=== PATIENT | female | born 1960 | race Caucasian/White ===

== ENCOUNTER 2020-05-24 09:28 | Emergency (ER) | payer BC, SELFPAY ==
[2020-05-24 09:43] VITALS: BP 140/84; PULSE 96; RESP 16; TEMP 36.9; O2SAT 98
--- NOTE | 2020-05-24 10:17 | ED.FEMALEGU ---
HPI - Female Genitourinary General Chief complaint: Urogenital-Female Stated complaint: uti Time Seen by Provider: 05/24/20 10:17 Source: patient Mode of arrival: ambulatory Limitations: no limitations History of Present Illness HPI Narrative: Aviva Neumann is a 59 yo female with a PMH of high cholesterol who comes to express care with burning and frequency that started yesterday morning she attempted to treat with increased fluid intake and use of Azo, continues to have increasing bladder spasm and discomfort this morning-noted blood in urine this morning Has had occasional UTIs in the past Related Data Home Medications Medication Instructions Recorded Confirmed bupropion HCl mg PO 05/24/20 lorazepam 05/24/20 rosuvastatin mg 05/24/20 sertraline mg 05/24/20 Allergies Allergy/AdvReac Type Severity Reaction Status Date / Time codeine Allergy Mild Swelling Unverified 05/13/19 08:07 Review of Systems Review of Systems: Narrative: CONSTITUTIONAL: Denies fever, chills, sweats. EYES: Denies visual changes, redness, discharge. ENT: Denies rhinorrhea, congestion, sore throat, otalgia. CARDIOVASCULAR: Denies chest pain, palpitations, edema. RESPIRATORY: Denies dyspnea, wheezing, cough GASTROINTESTINAL: Denies abdominal pain, nausea, vomiting, diarrhea. GENITOURINARY has dysuria, has hematuria, abnormal discharge SKIN: Denies rash or itching. NEUROLOGIC: Denies numbness, or focal weakness. PSYCHIATRIC: Denies anxiety or depression. [facility] Family History Family History Other Diabetes mellitus Heart disease Hypertension Social History Social History (Updated 05/24/20 @ 10:23 by Katy Mcdaniel CNP) Smoking status: Never smoker Alcohol intake: current Comments At time of signature, I agree with nursing past medical, surgical, social and family history. There is no relevant family history pertinent to the presenting complaint. Exam Narrative: Exam Narrative: GENERAL: This is a well-nourished, well-developed patient, in mild distress. HEAD: normocephalic, atraumatic. EYES: PERRL. Sclera clear/white. Vision is grossly intact. EARS: External ears normal, . Hearing grossly intact. NOSE: External nose normal without nasal discharge, nares without redness, no rhinorrhea. THROAT: Mucous membranes moist, NECK: Neck supple, CARDIOVASCULAR: Regular rate and rhythm without murmurs, gallops, or rubs. RESPIRATORY: Clear to auscultation. Breath sounds equal bilaterally. No wheezes, rales, or rhonchi. GASTROINTESTINAL: Abdomen soft, mild suprapubic tenderness SKIN: warm, intact with no suspicious lesions or rash, good texture and turgor. NEURO: awake, alert, and oriented to person, place and time. There were no obvious focal neurologic abnormalities. Steady gait EXTREMITIES: Normal range of motion. BACK: Nontender without deformity Course Course Emergency Course: UA shows 3+ leukocytes and positive nitrites, 3+ blood-discussed use of antibiotics as has had prior UTI; has taken Bactrim before but causes her to have a headache so started on Keflex 500 mg 1 twice daily x5 days along with Pyridium Follow-up with PCP Vital Signs Vital signs: Vital Signs Temperature 98.4 F 05/24/20 09:43 Pulse Rate 96 05/24/20 09:43 Respiratory Rate 16 05/24/20 09:43 Blood Pressure 140/84 05/24/20 09:43 Pulse Oximetry 98 05/24/20 09:43 Temperature 98.4 F 05/24/20 09:43 Pulse Rate 96 05/24/20 09:43 Respiratory Rate 16 05/24/20 09:43 Blood Pressure 140/84 05/24/20 09:43 Pulse Oximetry 98 05/24/20 09:43 MDM - Female Genitourinary Differential Diagnosis Differential diagnosis: Likely urinary tract infection, cystitis and other Lab Data Labs: Urine Glucose Trace Reference Range: Negative Urine Bilirubin 1+ Reference Range: Negative Urine Ketone Trace Referenc
== END 2020-05-24 10:35 | disposition home or self-care (01) ==
PROVIDERS: Emergency Provider Nurse Practitioner; PCP Internal Medicine
DX: N30.01 Acute cystitis with hematuria (principal); E78.00 Pure hypercholesterolemia, unspecified
CPT/HCPCS: 81003; 87077; 87086; 87088; 87186; 99213; G0463

== ENCOUNTER 2022-02-15 08:58 | Outpatient (CLI) | payer BC, SELFPAY ==
--- NOTE | ~2022-02-15 | MM_ITS ---
EXAMINATION: MM screening [facility] BI w kalie HISTORY: Screening mammogram TECHNIQUE: Craniocaudal and mediolateral oblique 3-D tomosynthesis images were obtained and synthetic 2-D images were generated. CAD analysis was submitted and interpreted. COMPARISON: 08/23/2014 diagnostic left mammogram 08/12/2014, 08/05/2013 bilateral screening mammogram examinations... BREAST PARENCHYMAL COMPOSITION: There are scattered areas of fibroglandular density. FINDINGS: Upper-outer quadrant left breast biopsy marker; history of prior bilateral benign breast bi opsies. Bilateral nodular subcentimeter masses are noted. Bilateral diagnostic mammography and breast ultraso und examination are recommended IMPRESSION: 1. Bilateral subcentimeter masses; 2. Bilateral diagnostic mammography and breast ultrasound examination are recommended BI-RADS Category 0: Incomplete: Needs additional imaging evaluation. Reviewed, dictated and finalized at location A. IMPRESSION: 1. Bilateral subcentimeter masses; 2. Bilateral diagnostic mammography and breast ultrasound examination are recom mended BI-RADS Category 0: Incomplete: Needs additional imaging evaluation.
== END 2022-02-15 08:59 | disposition home or self-care (01) ==
DX: Z12.31 Encounter for screening mammogram for malignant neoplasm of breast (principal); R92.8 Other abnormal and inconclusive findings on diagnostic imaging of breast
CPT/HCPCS: 77063; 77067

== ENCOUNTER 2022-07-15 01:44 | Day surgery (SDC) | payer BC, SELFPAY ==
[2022-06-28 13:47] VITALS: BMI 33.7
--- NOTE | 2022-07-14 16:29 | PM.HPGS ---
History of Present Illness History of Present Illness Consent: Risks, benefits, and alternatives have been discussed and questions answered. Patient agrees to proceed with procedure. Chief complaint: GERD, neoplasm screening Narrative: Aviva Neumann is a 61 year old female with chronic reflux symptoms was also due for colon cancer screening. She denies dysphagia. She is not currently on acid reducing medications. she often regurgitates bitter material, particularly when lying down. Review of Systems Review of Systems: All systems reviewed & are unremarkable except as noted in HPI and below PMFSH Family History Family History Other Diabetes mellitus Heart disease Hypertension Social History Social History Smoking status: Never smoker Alcohol intake: never Substance use: never Substance use type: does not use Living arrangements: with family Spiritual care concerns: No Meds Home Medications and Allergies Home Medications Medication Instructions Recorded Confirmed Type rosuvastatin 20 mg tablet 20 mg PO DAILY 05/24/20 06/28/22 History sertraline 100 mg tablet 100 mg PO DAILY 05/24/20 06/28/22 History lisinopril 10 mg tablet 10 mg PO DAILY 06/28/22 06/28/22 History Allergies Allergy/AdvReac Type Severity Reaction Status Date / Time codeine Allergy Mild Swelling Verified 07/15/22 08:34 Exam Const: General: alert Orientation/consciousness: patient oriented x3 Resp: Auscultation: clear to auscultation bilaterally Cardio: Rhythm: regular rhythm GI: GI Palp: Yes Soft to palpation and No Tenderness to palpation present (GI) Neuro: General: patient oriented x3 Assessment and Plan Assessment and plan (1) GERD (gastroesophageal reflux disease): Code(s): K21.9 - Gastro-esophageal reflux disease without esophagitis Status: Acute Assessment and Plan: EGD with possible biopsy or dilatation or cautery. (2) Colon cancer screening: Code(s): Z12.11 - Encounter for screening for malignant neoplasm of colon Status: Acute Assessment and Plan: Colonoscopy with possible biopsy or polypectomy or cautery or injection of substances.
[2022-07-15 08:35] VITALS: BP 141/85; PULSE 87; RESP 16; TEMP 36.9; O2SAT 97; BMI 34.1
[2022-07-15] MEDS: LACTATED RINGERS 1,000 ML 150 ML IV CONT (08:44)
--- NOTE | 2022-07-15 09:24 | WPDANESEPPF ---
Anes - Initial Pre Proc Eval Procedure: Operation Date: 07/15/22 10:00 Proposed Procedures p Esophagogastroduodenoscopy & Screening Colonoscopy - Gavin Marcelino MD Date/Time: 07/15/22 09:24 Surgeon: Gavin Marcelino MD Pre Op Diagnosis: GERD, neoplasm screening Patient Data Age: 61 Gender: F Height: 1.7 m Weight: 98.9 kg Last Vital Signs Temp 98.4 F 07/15/22 08:35 Pulse 87 07/15/22 08:35 Resp 16 07/15/22 08:35 BP 141/85 H 07/15/22 08:35 Pulse Ox 97 07/15/22 08:35 O2 Del Method Room Air 07/15/22 08:35 Allergies Allergy/AdvReac Type Severity Reaction Status Date / Time codeine Allergy Mild Swelling Verified 07/15/22 08:34 Home Medications Medication Instructions Recorded Confirmed Type rosuvastatin 20 mg tablet 20 mg PO DAILY 05/24/20 06/28/22 History sertraline 100 mg tablet 100 mg PO DAILY 05/24/20 06/28/22 History lisinopril 10 mg tablet 10 mg PO DAILY 06/28/22 06/28/22 History Patient hx anesthesia problems: none Family hx anesthesia problems: none Results Review: All pre-operative results and documents have been reviewed as part of the pre-operative evaluation. [facility] Family History Family History Other Diabetes mellitus Heart disease Hypertension Social History Social History (Updated 05/24/20 @ 10:23 by Katy Mcdaniel CNP) Smoking status: Never smoker Alcohol intake: never Substance use: never Substance use type: does not use Living arrangements: with family Spiritual care concerns: No Anes - Eval Final PreProcedure Day of Procedure 07/15/22 09:24 Patient weight: obese Heart: regular rate and rhythm Lungs: clear to auscultation Airway: Mallampati scale class II Neurological: alert and oriented Last oral intake: >/= 8 hours ASA classification: II Emergent: no Anesthetic plan: proceed Anesthesia type and monitoring: general GIVS and standard monitoring Results Review: All pre-operative results and documents have been reviewed as part of the pre-operative evaluation. Informed Consent: The patient's anesthetic plan and its attendant risks and benefits were discussed with the patient/family/POA. Questions were solicited and answers provided to the satisfaction of the patient/family/POA.
[2022-07-15] MEDS: BENZOCAINE (*SP) 60 ML SPRAY CAN (HURRICAINE) 1 SPRAY MUCOUS MEM (10:34)
--- NOTE | 2022-07-15 10:39 | SUR.OPER ---
EGD START 1017, END 1021 COLONOSCOPY START 1029, END 1038
[2022-07-15 10:42] VITALS: BP 124/80; PULSE 70; RESP 20; O2SAT 96
[2022-07-15 10:52] VITALS: BP 151/87; PULSE 70; RESP 20; O2SAT 97
[2022-07-15 11:02] VITALS: BP 113/54; PULSE 64; RESP 19; O2SAT 100
== END 2022-07-15 11:28 | disposition home or self-care (01) ==
PROVIDERS: PCP Internal Medicine; Visit Provider Internal Medicine Gastroenterology
PROC: 0DJ08ZZ Inspection of Upper Intestinal Tract, Via Natural or Artificial Opening Endoscopic (ICD-10-PCS; CPT 43235; principal; 2022-07-15 10:00)
DX: Z12.11 Encounter for screening for malignant neoplasm of colon (principal); K57.30 Diverticulosis of large intestine without perforation or abscess without bleeding; K29.50 Unspecified chronic gastritis without bleeding; K22.2 Esophageal obstruction; K21.00 Gastro-esophageal reflux disease with esophagitis, without bleeding; K44.9 Diaphragmatic hernia without obstruction or gangrene; E66.9 Obesity, unspecified; Z68.34 Body mass index [BMI] 34.0-34.9, adult; I10 Essential (primary) hypertension; E11.9 Type 2 diabetes mellitus without complications; I51.9 Heart disease, unspecified; R13.10 Dysphagia, unspecified
CPT/HCPCS: 45378; 43239; 87081; 88305; J2704; J7120

== ENCOUNTER 2023-03-01 15:03 | Outpatient (CLI) | payer BC, SELFPAY ==
--- NOTE | ~2023-03-01 | MM_ITS ---
EXAMINATION: MM screening [facility] BI w kalie HISTORY: Screening mammogram, family history of breast cancer in her mother. TECHNIQUE: Craniocaudal and mediolateral oblique 3-D tomosynthesis images were obtained and synthetic 2-D images were generated. CAD analysis was submitted and interpreted. COMPARISON: 02/15/2022, 12/30/2020, 11/21/2019, 08/23/2014, 08/12/2014 BREAST PARENCHYMAL COMPOSITION: There are scattered areas of fibroglandular density. FINDINGS: RIGHT BREAST: No suspicious mass, calcification, or architectural distortion are identified to sugges t malignancy. There has been no suspicious interval change. LEFT BREAST: There is an obscured mass in the posterior third of the outer breast approximately 8 cm from the nipple. IMPRESSION: 1. Left breast mass. 2. Additional mammographic views and possible breast ultrasound are recommended. BI-RADS Category 0: Incomplete: Needs additional imaging evaluation. Reviewed, dictated and finalized at location A. IMPRESSION: 1. Left breast mass. 2. Additional mammographic views and possible breast ultrasound are recommended . BI-RADS Category 0: Incomplete: Needs additional imaging evaluation.
== END 2023-03-01 15:04 | disposition home or self-care (01) ==
PROVIDERS: PCP Internal Medicine; Visit Provider Obstetrics & Gynecology
DX: Z12.31 Encounter for screening mammogram for malignant neoplasm of breast (principal); R92.8 Other abnormal and inconclusive findings on diagnostic imaging of breast
CPT/HCPCS: 77063; 77067

== ENCOUNTER 2023-03-28 11:29 | Outpatient (CLI) | payer BC, SELFPAY ==
--- NOTE | ~2023-03-28 | MMUS_ITS ---
EXAMINATION: MM diagnostic [facility] LT w kalie, US breast LT complete HISTORY: Obscured left breast mass reported in posterior third of outer breast approximately 8 cm fro m nipple on 03/01/2023 screening mammogram TECHNIQUE: Additional 3-D tomosynthesis images of the left breast were performed and synthetic 2-D im ages were generated. CAD analysis was submitted and interpreted. High resolution complete left breast ultrasound examination including all 4 quadrants and subareolar area was performed. COMPARISON: 03/01/2023 bilateral screening mammogram FINDINGS: MAMMOGRAPHIC FINDINGS: There is a biopsy marker in the upper outer quadrant of the left breast. History of prior benign left breast biopsy. A circumscribed approximately 6.7 x 8 mm opacity is noted in the posterior outer mid left breast. The re is partial halo sign suggesting benign etiology, likely cyst. There is mildly nodular fibroglandular stroma of the left breast which may obscure small masses; for this reason, complete left breast ultrasound examination was performed. ULTRASOUND: 3:00 5 cm from nipple: 5.1 x 8 mm sonolucency without internal vascularity, with through transmission , consistent with simple cyst. No suspicious mass or shadowing is detected elsewhere in the left breast. IMPRESSION: 1. Benign approximately 5 x 8 mm 3:00 left breast cyst 2. Routine annual mammographic screening is recommended BI-RADS Category 2: Benign finding(s). Reviewed, dictated and finalized at location A. IMPRESSION: 1. Benign approximately 5 x 8 mm 3:00 left breast cyst 2. Routine annual mammographic screening is recommended BI-RADS Category 2: Benign finding(s).
== END 2023-03-28 11:30 | disposition home or self-care (01) ==
PROVIDERS: PCP Obstetrics & Gynecology; Visit Provider Obstetrics & Gynecology
DX: N63.20 Unspecified lump in the left breast, unspecified quadrant (principal); R92.8 Other abnormal and inconclusive findings on diagnostic imaging of breast
CPT/HCPCS: 76641; 77061; 77065; G0279

== ENCOUNTER 2023-06-26 18:47 | Emergency (ER) | payer BC, SELFPAY ==
--- NOTE | ~2023-06-26 | XR_ITS ---
EXAMINATION: XR chest 2V Exam Date/Time: 06/26/2023 18:50 CDT HISTORY: cp MIDSTERNAL CHEST PAIN THAT RADIATES BETWEEN B/L Comparison: None. RESULT: Lines, tubes, and devices: None. Lungs and pleura: Calcified right lower lobe granuloma, otherwise clear. Cardiomediastinal silhouette: Stable. Linear and curvilinear gastric is project over the heart, seen best in the lateral view, possibly related to coronary artery and/or bowel calcification. Other: No acute osseous or upper abdominal finding. IMPRESSION: No acute cardiopulmonary process. Reviewed, dictated and finalized at location K.
--- NOTE | 2023-06-26 18:48 | ECG_ITS ---
Measurements Intervals [place] Rate: 80 P: 42 MA: 159 QRS: 9 QRSD: 93 T: -37 QT: 371 QTc: 430 Interpretive Statements SINUS RHYTHM BORDERLINE R WAVE PROGRESSION, ANTERIOR LEADS BORDERLINE ST-T WAVE ABNORMALITY- ANTEROLAT/INF LEADS BASELINE ARTIFACT- I, III, AVR, AVL, V1-V3, V6 BORDERLINE ECG NO PREVIOUS ECG AVAILABLE FOR COMPARISON Electronically Signed On 06-26-2023 19:47:02 CDT by Liam Moulton D.O.
[2023-06-26 18:51] VITALS: BP 146/92; PULSE 82; RESP 16; TEMP 37; O2SAT 97
[2023-06-26 19:21] LABS: Basophils Percent Auto 0.4 % (0.2-1.2); Eosinophils Absolute Auto 0.3 K/mm3 (0-0.3); Eosinophils Percent Auto 3.7 % (0-4.4); Immature Granulocyte Absolute 0.03 K/mm3 (0.00-0.031); Immature Granulocyte Percent A 0.4 % (0-0.5); Lymphocytes Absolute Auto 2.82 K/mm3 (0.9-3.2); Lymphocytes Percent Auto 34.5 % (18.3-44.2); Mean Corpuscular HGB Conc 34.1 g/dl (32-36); Mean Corpuscular Hemoglobin 30.6 pg (26-34); Mean Corpuscular Volume 89.7 fl (80-100); Mean Platelet Volume 9.4 fl (7.4-10.4); Monocytes Absolute Auto 0.7 K/mm3 (0.1-0.6); Monocytes Percent Auto 8.4 % (2.6-8.5); Neutrophils Absolute Auto 4.3 K/mm3 (1.3-6.7); Neutrophils Percent Auto 52.6 % (45.5-73.1); Platelet Count Result 300 k/mm3 (150-375); Red Blood Count 4.57 M/mm3 (4.2-5.4); Red Cell Distribution Width 12.7 % (11.5-14.5); White Blood Count 8.2 K/mm3 (4.5-10.0)
[2023-06-26 19:31] LABS: INR 0.9; Prothrombin Time 12.8 Seconds (11.1-14.7)
[2023-06-26 19:32] LABS: Partial Thromboplastin Time 28.4 SECONDS (22.3-36.8)
[2023-06-26 19:34] LABS: Alanine Aminotransferase 25 U/L (6-35); Albumin Level 4.4 g/dL (3.5-5.1); Alkaline Phosphatase 75 U/L (38-126); Anion Gap 10 mmol/L (8-16); Aspartate Amino Transferase 27 U/L (14-36); Bilirubin,Total 0.5 mg/dL (0.2-1.3); Blood Urea Nitrogen 18 mg/dL (7-17); Calcium 9.6 mg/dL (8.4-10.2); Carbon Dioxide 29 mmol/L (22-30); Chloride 101 mmol/L (98-107); Estimated Glomerular Filt Rate 56; Glucose 127 mg/dL (65-110); Lipase 118 U/L (23-300); Potassium 3.9 mmol/L (3.4-5.0); Sodium 140 mmol/L (137-145)
[2023-06-26 19:46] LABS: Troponin I < 0.012 ng/mL (0.000-0.034)
[2023-06-27] MEDS: ASPIRIN 81 MG CHEWABLE TABLET 324 MG PO
[2023-06-27 00:02] VITALS: BP 150/91; PULSE 80; RESP 16; O2SAT 97
[2023-06-27 00:30] LABS: Troponin I < 0.012 ng/mL (0.000-0.034)
--- NOTE | 2023-06-27 01:24 | ED.CHESTPAIN ---
HPI - Chest Pain General Chief Complaint: Chest Pain Stated Complaint: chest pain Time Seen by Provider: 06/27/23 00:44 History of Present Illness HPI narrative: Patient presents to the emergency department with left lateral chest pain that radiates into her mid upper back. Pain lasted for couple hours and improved after arrival. She denies all other review of systems including shortness of breath fevers chills cough nausea and vomiting. She asks if this discomfort could be secondary to stress. Her was recently diagnosed with cancer. She denies any cardiac risk factors. Her sister had a heart attack in her 50s. Patient is very pleasant and her exam is grossly benign. Related Data Home Medications Medication Instructions Recorded Confirmed rosuvastatin 20 mg tablet 20 mg PO DAILY 05/24/20 11/08/22 sertraline 100 mg tablet 100 mg PO DAILY 05/24/20 11/08/22 lisinopril 10 mg tablet 10 mg PO DAILY 06/28/22 11/08/22 Allergies Allergy/AdvReac Type Severity Reaction Status Date / Time codeine Allergy Mild Swelling Verified 06/26/23 18:53 Review of Systems Review of Systems: CONSTITUTIONAL: Denies fever, chills, or sweats. EYES: Denies visual changes, redness, or discharge. ENT: Denies rhinorrhea, congestion, sore throat, or otalgia. CARDIOVASCULAR: Denies palpitations, or edema. Chest pain and back pain RESPIRATORY: Denies cough or dyspnea. GASTROINTESTINAL: Denies abdominal pain, nausea, vomiting, or diarrhea. GENITOURINARY: Denies dysuria or hematuria. SKIN: Denies rash or itching. MUSCULOSKELETAL: Denies back pain, joint pain, or myalgia. NEUROLOGIC: Denies headache, numbness, or weakness. PSYCHIATRIC: Denies anxiety or depression. [facility] Past Medical History Medical History (Updated 06/27/23 @ 01:33 by Dee Dee rBothers MD) Anxiety and depression Breast cyst Diverticulitis Hypertension Left breast mass Screening for breast cancer Surgical History Surgical History History of breast biopsy 2013 (L) breast--benign 09/2016 (R) breast--benign 10/2016 (R) breast radial scar removed--benign History of cholecystectomy (09/11/18) History of total abdominal hysterectomy (~2005) uterine fibroids Family History Family History Father Heart disease Diabetes mellitus Carcinoma of colon Malignant neoplasm of skin Grandparent Heart disease paternal grandmother Mother Hypertension Sibling Acute myocardial infarction sister Other Breast cancer maternal uncle Social History Social History (Updated 11/08/22 @ 13:53 by Afsaneh Rodríguez CMA) Smoking status: Never smoker Alcohol intake: never Substance use: never Substance use type: does not use Living arrangements: other Additional living arrangements comments: Occupation/Education: retired Gender identity (if verbalized by the patient): Female Sexual Orientation (if Verbalized by the Patient): Straight or Heterosexual Spiritual care concerns: No Exam Narrative: GENERAL: Well-appearing, well-nourished, and in no acute distress. HEAD: Normocephalic, atraumatic. EYES: PERRLA and EOMI. ENT: Nares clear, no rhinorrhea or epistaxis. Mucous membranes moist. NECK: Supple. CHEST: Clear to auscultation. No respiratory distress. HEART: Regular rate and rhythm. ABDOMEN: Soft, nontender, nondistended. EXTREMITIES: Normal range of motion. No edema. SKIN: Warm, dry, no rash. NEURO: No focal deficits. Alert and oriented x3. PSYCH: Normal mood and affect. Course Course Emergency Course: Differential diagnosis includes but not limited to chest wall pain, musculoskeletal back pain, pneumonia, stress Vital Signs Vital signs: Vital Signs Temperature 37.0 C 06/26/23 18:51 Pulse Rate 82 06/26/23 18:51 Respiratory Rate 16 06/26/23 18:51 Blood Pressure 146/92 H 06/26
--- NOTE | 2023-06-27 01:32 | PC.NURSE ---
Pt seen and treated in triage by MIGUEL Brothers.
[2023-06-27 01:38] VITALS: BP 141/87; PULSE 73; RESP 18; O2SAT 98
== END 2023-06-27 01:42 | disposition home or self-care (01) ==
PROVIDERS: Emergency Medicine; Emergency Provider Emergency Medicine; PCP Family Medicine
DX: R07.89 Other chest pain (principal); M54.6 Pain in thoracic spine; F41.9 Anxiety disorder, unspecified; F32.A Depression, unspecified; I10 Essential (primary) hypertension
CPT/HCPCS: 36415; 71046; 80053; 83690; 84484; 85025; 85610; 85730; 93005; 99284; A9270

== ENCOUNTER 2024-07-20 13:36 | Outpatient (CLI) | payer BC, SELFPAY ==
--- NOTE | ~2024-07-20 | MM_ITS ---
EXAMINATION: MM screening [facility] BI w kalie HISTORY: Screening TECHNIQUE: Craniocaudal and mediolateral oblique 3-D tomosynthesis images were obtained and synthetic 2-D images were generated. CAD analysis was submitted and interpreted. COMPARISON: Comparison to multiple prior studies sequentially, with oldest reviewed study dated 04/2014. BREAST PARENCHYMAL COMPOSITION: Not dense: There are scattered areas of fibroglandular density. FINDINGS: There is no evidence of suspicious mass, calcification, or architectural distortion to sugg est malignancy in either breast. There has been no suspicious interval change. IMPRESSION: 1. No mammographic evidence of malignancy. 2. Recommend routine screening mammography in one year. BI-RADS Category 1: Negative Reviewed, dictated and finalized at location B.
== END 2024-07-20 13:37 | disposition home or self-care (01) ==
LOC: ANHIMG 13:38
PROVIDERS: PCP Nurse Practitioner Family; Visit Provider Nurse Practitioner Family
DX: Z12.31 Encounter for screening mammogram for malignant neoplasm of breast (principal)
CPT/HCPCS: 77063; 77067

== ENCOUNTER 2025-04-19 10:30 | Emergency (ER) | payer BC, SELFPAY ==
--- NOTE | ~2025-04-19 | XR_ITS ---
CHEST RADIOGRAPH, PA AND LATERAL CLINICAL HISTORY: cough couple days nonsmoker hx bronchitis . COMPARISON: 06/26/2023 TECHNIQUE: PA and lateral views of the chest. FINDINGS The cardiomediastinal silhouette is unremarkable. The lungs are clear. IMPRESSION: No focal infiltrate or effusion. Reviewed, dictated and finalized at location A.
[2025-04-19 10:37] VITALS: BP 127/70; PULSE 104; RESP 18; TEMP 36.8; O2SAT 98
--- NOTE | 2025-04-19 10:50 | ED_ITS ---
HPI - General Adult General Chief complaint: Upper Respiratory Infection Stated complaint: Cough Source: patient Mode of arrival: ambulatory Limitations: no limitations History of Present Illness HPI narrative: Patient presents for evaluation of a cough for the last 2 days. Cough is nonproductive. She denies any fever, chills, shortness of breath, nausea, vomiting, diarrhea. No recent sick contacts to her knowledge. She tried taking DayQuil and Tessalon Perles. Tessalon Perles provide him mild relief. She does not smoke. She came in because her is immunosuppressed and she did not want to expose him to any illness. Related Data Allergies Allergy/AdvReac Type Severity Reaction Status Date / Time codeine Allergy Mild Swelling Verified 04/19/25 10:33 Review of Systems Review of Systems: CONSTITUTIONAL: Denies fever, chills, or sweats. EYES: Denies visual changes, redness, or discharge. ENT: Denies rhinorrhea, congestion, sore throat, or otalgia. CARDIOVASCULAR: Denies chest pain, palpitations, or edema. RESPIRATORY: reports cough. Denies shortness of breath. GASTROINTESTINAL: Denies abdominal pain, nausea, vomiting, or diarrhea. GENITOURINARY: Denies dysuria or hematuria. SKIN: Denies rash or itching. MUSCULOSKELETAL: Denies back pain, joint pain, or myalgia. NEUROLOGIC: Denies headache, numbness, dizziness, or weakness. PSYCHIATRIC: Denies anxiety or depression. [facility] Past Medical History Medical History Cough BMI 33.0-33.9,adult BMI 32.0-32.9,adult BMI 35.0-35.9,adult Hypersomnia Snoring Anxiety Edema Vitamin D deficiency BMI 34.0-34.9,adult Encounter to establish care Microscopic hematuria Hyperlipidemia Elevated glucose Left breast mass Screening for breast cancer Hypertension Diverticulitis Breast cyst Anxiety and depression Surgical History Surgical History Hx of cataract surgery right and left eye History of breast biopsy 2013 (L) breast--benign 09/2016 (R) breast--benign 10/2016 (R) breast radial scar removed--benign History of total abdominal hysterectomy (~2005) uterine fibroids History of cholecystectomy (09/11/18) Family History Family History Father Heart disease Diabetes mellitus Carcinoma of colon Malignant neoplasm of skin Grandparent Heart disease paternal grandmother Mother Hypertension Sibling Acute myocardial infarction sister Other Breast cancer maternal uncle Social History Social History Smoking status: Never smoker Alcohol intake: never Substance use: never Substance use type: does not use Current Housing: Decline to Answer Concerned About Future Housing: Decline to Answer Difficulty Paying Gas/Electric Bills: Decline to Answer Difficulty Paying for Meds: Decline to Answer Currently Unemployed: Decline to Answer Education: Decline to Answer Difficulty w/ Childcare or Family Care: Decline to Answer Living arrangements: other Additional living arrangements comments: Occupation/Education: retired Gender identity (if verbalized by the patient): Female Sexual Orientation (if Verbalized by the Patient): Straight or Heterosexual Spiritual care concerns: No Exam Narrative: GENERAL: Well-appearing, well-nourished, and in no acute distress. HEAD: Normocephalic, atraumatic. EYES: PERRLA and EOMI. ENT: Nares clear, no rhinorrhea or epistaxis. Mucous membranes moist. Oropharynx without tonsillar hypertrophy exudate or other lesions. Bilateral TMs pearly gno nonbulging NECK: Supple. No adenopathy or masses. No carotid bruits or JVD CHEST: Cough present on exam. Clear to auscultation. No respiratory distress. No wheezes rales or rhonchi HEART: Regular rate and rhythm. No murmur heard. Normal peripheral pulses. ABDOMEN: Soft, nontender, nondistended, normal active bowel sounds. EXTREMITIES: Normal range of motion. No edema. SKIN: Warm, dry, no rash. NEURO: No focal deficits. Alert and oriented x3. PSYCH: Normal mood and affect. Course Course Emergency Course: This is a 64 yr old female who presented for evaluation of a cough. She declined COVID and influenza testing. Chest x-ray was normal. Exam is consistent with acute viral syndrome. Will discharge with prednisone. Dextromethorphan should help with cough. Increase fluids. Follow up with primary care provider. Go to the ER for worsening symptoms. Pt in agreement with plan of care. Level of Care: Express Care Visit Vital Signs Vital signs: Vital Signs Temperature 36.8 C 04/19/25 10:37 Pulse Rate 104 H 04/19/25 10:37 Respiratory Rate 18 04/19/25 10:37 Blood Pressure 127/70 04/19/25 10:37 Pulse Oximetry 98 04/19/25 10:37 Oxygen Delivery Room Air 04/19/25 10:37 Temperature 36.8 C 04/19/25 10:37 Pulse Rate 104 H 04/19/25 10:37 Respiratory Rate 18 04/19/25 10:37 Blood Pressure 127/70 04/19/25 10:37 Pulse Oximetry 98 04/19/25 10:37 Oxygen Delivery Room Air 04/19/25 10:37 Medical Decision Making Vital Signs Vital Signs: Vital Signs Temperature 36.8 C 04/19/25 10:37 Pulse Rate 104 H 04/19/25 10:37 Respiratory Rate 18 04/19/25 10:37 Blood Pressure 127/70 04/19/25 10:37 Pulse Oximetry 98 04/19/25 10:37 Oxygen Delivery Room Air 04/19/25 10:37 Temperature 36.8 C 04/19/25 10:37 Pulse Rate 104 H 04/19/25 10:37 Respiratory Rate 18 04/19/25 10:37 Blood Pressure 127/70 04/19/25 10:37 Pulse Oximetry 98 04/19/25 10:37 Oxygen Delivery Room Air 04/19/25 10:37 Imaging Data Radiologist's impression: CHEST RADIOGRAPH, PA AND LATERAL CLINICAL HISTORY: cough couple days nonsmoker hx bronchitis . COMPARISON: 06/26/2023 TECHNIQUE: PA and lateral views of the chest. FINDINGS The cardiomediastinal silhouette is unremarkable. The lungs are clear. IMPRESSION: No focal infiltrate or effusion. Discharge Plan Discharge Clinical Impression: Upper respiratory infection, viral Patient Disposition: Home Condition: Stable Instructions: Antibiotic Form, Upper Respiratory Infection (DC), Viral Syndrome (ED) Additional Instructions: DEXTROMETHORPHAN (DELSYM) SHOULD HELP WITH COUGH INCREASE WATER INTAKE Patient Language: Iranian Prescriptions: New prednisone 50 mg tablet 50 mg PO DAILY Qty: 5 0RF No Action sertraline 100 mg tablet 100 mg PO DAILY Qty: 90 3RF rosuvastatin 20 mg tablet 20 mg PO DAILY Qty: 90 3RF losartan 50 mg tablet 25 mg PO DAILY Qty: 90 3RF Follow-up/Referrals: Irasema Rodríguez NP [Primary Care Provider] - Time of Disposition: 11:32
== END 2025-04-19 11:35 | disposition home or self-care (01) ==
PROVIDERS: Emergency Provider Nurse Practitioner; PCP Nurse Practitioner Family
DX: J06.9 Acute upper respiratory infection, unspecified (principal); I10 Essential (primary) hypertension; E78.5 Hyperlipidemia, unspecified; F41.9 Anxiety disorder, unspecified; F32.A Depression, unspecified
CPT/HCPCS: 71046; 99213; G0463